=== PATIENT | female | born 1935 | race Caucasian/White ===

== ENCOUNTER 2020-09-08 13:52 | Outpatient (CLI) | payer MEDICARE, SELFPAY ==
--- NOTE | ~2020-09-08 | XR_ITS ---
EXAMINATION: XR wrist RT min 3V DATE: 09/08/2020 14:24 INDICATION: Right wrist fracture TECHNIQUE: Posteroanterior, oblique, and lateral views of the right wrist were obtained. COMPARISON: none FINDINGS: Casting material about the right wrist which obscures fine bone and soft tissue detail. Comminuted fr acture of the distal right radius. There is prominent dorsal angulation resulting in 40% dorsal tilt of the distal articular surface. No definitive intra-articular extension identified although given th e proximity this could not be absolutely excluded. No other fractures identified. 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 IMPRESSION: 1. Dorsal angulation of a comminuted fractures of the distal right radius resulting in 40 degree dors al tilt of the distal articular surface. Reviewed, dictated and finalized at location A. IMPRESSION: 1. Dorsal angulation of a comminuted fractures of the distal right radius resul ting in 40 degree dorsal tilt of the distal articular surface.
== END 2020-09-08 13:53 | disposition home or self-care (01) ==
LOC: CHSIMG 14:01
PROVIDERS: PCP Family Medicine; Visit Provider Family Medicine
DX: S62.101S Fracture of unspecified carpal bone, right wrist, sequela (principal)
CPT/HCPCS: 73110

== ENCOUNTER 2020-09-13 11:17 | Outpatient (CLI) | payer MEDICARE, SELFPAY | END 2020-09-13 11:18 | disposition home or self-care (01) | LOC: CHSCOVIDVC 11:17 | PROVIDERS: PCP Family Medicine | DX: Z23 Encounter for immunization (principal) | CPT/HCPCS: 0011A; 91301 ==

== ENCOUNTER 2020-09-26 08:42 | Outpatient (CLI) | payer OTHER, MEDICARE, SELFPAY ==
--- NOTE | ~2020-09-26 | XR_ITS ---
XR wrist RT min 3V DATE: 09/26/2020 09:01 INDICATION: Fracture follow-up TECHNIQUE: 3 views COMPARISON: 09/08/2020 right wrist FINDINGS: There is a fiberglass cast of the forearm and wrist. There is diffuse osteopenia. There is sclerosis at the transverse metaphyseal fracture of the distal radius with prominent dorsal inclination of the distal radial articular surface, without any change in position or alignment since 09/08/2020. Radiocarpal alignment is intact. IMPRESSION: Healing casted fracture of the distal radial metaphysis with persistent stable prominent dorsal inclination of the distal radial articular surface Reviewed, dictated and finalized at location A. IMPRESSION: Healing casted fracture of the distal radial metaphysis with persis tent stable prominent dorsal inclination of the distal radial articular surface
== END 2020-09-26 08:43 | disposition home or self-care (01) ==
LOC: CHSIMG 08:44
PROVIDERS: PCP Internal Medicine; Visit Provider Internal Medicine
DX: S62.101D Fracture of unspecified carpal bone, right wrist, subsequent encounter for fracture with routine healing (principal)
CPT/HCPCS: 73110

== ENCOUNTER 2020-10-04 07:30 | Outpatient (NON) | payer MEDICARE, SELFPAY ==
[2020-10-04 07:47] LABS: Basophils Absolute Auto 0.06 K/mm3 (0.00-0.10); Basophils Percent Auto 0.7 % (0.0-1.0); Eosinophils Absolute Auto 0.29 K/mm3 (0.02-0.50); Eosinophils Percent Auto 3.4 % (1.0-6.0); Hematocrit 41.2 % (35.0-42.0); Hemoglobin 13.6 g/dL (11.7-13.8); Immature Granulocyte Absolute 0.03 K/mm3 (0.00-0.00); Immature Granulocyte Percent A 0.4 % (0.0-0.0); Lymphocytes Absolute Auto 1.61 K/mm3 (1.10-4.50); Lymphocytes Percent Auto 19.1 % (18.0-42.0); Mean Corpuscular Hemoglobin 31.6 pg (27.0-31.0); Mean Corpuscular Volume 95.6 fL (78.0-102.0); Mean Platelet Volume 9.7 fl (9.2-11.8); Monocytes Absolute Auto 0.74 K/mm3 (0.10-0.90); Monocytes Percent Auto 8.8 % (2.0-11.0); Neutrophils Absolute Auto 5.7 K/mm3 (1.7-7.2); Neutrophils Percent Auto 67.6 % (50.0-70.0); Platelet Count Result 361 K/mm3 (150-420); Red Blood Count 4.31 M/mm3 (4.20-5.40); Red Cell Distribution Width 12.2 % (11.6-14.4); White Blood Count 8.4 K/mm3 (4.8-10.8)
[2020-10-04 08:13] LABS: Alanine Aminotransferase 21 U/L (14-59); Albumin Level 3.4 g/dL (3.4-5.0); Alkaline Phosphatase 265 U/L (46-116); Anion Gap 3 mmol/L (8-16); Aspartate Amino Transferase 19 U/L (15-37); Bilirubin,Total 0.7 mg/dL (0.00-1.00); Blood Urea Nitrogen 19 mg/dL (7-18); Carbon Dioxide 36 mmol/L (21-32); Chloride 102 mmol/L (98-108); Cholesterol 200 mg/dL (0-200); Estimated Glomerular Filt Rate > 60; Free T4 Free Thyroxine 0.86 ng/dL (0.76-1.46); Glucose 87 mg/dL (70-99); HDL Direct 101 mg/dL (40-60); LDL Cholesterol Calculated 82 mg/dL (<130); Osmolality Calculated 293 mOsm/kg (285-295); Potassium 4.2 mmol/L (3.5-5.1); Sodium 141 mmol/L (136-145); Thyroid Stimulating Hormone 2.02 uIU/mL (0.36-3.74); Total Protein 6.3 g/dL (6.4-8.2); Triglycerides 86 mg/dL (0-150)
[2020-10-09 12:36] LABS: Vitamin D 25 Hydroxy 51 ng/mL (30-100)
== END 2020-10-04 07:31 | disposition home or self-care (01) ==
LOC: CHSLAB 07:34
PROVIDERS: PCP Internal Medicine; Visit Provider Family Medicine
DX: D50.9 Iron deficiency anemia, unspecified (principal); G20 Parkinson's disease; J44.9 Chronic obstructive pulmonary disease, unspecified; E55.9 Vitamin D deficiency, unspecified; E78.5 Hyperlipidemia, unspecified; E03.9 Hypothyroidism, unspecified
CPT/HCPCS: 36415; 80053; 80061; 82306; 84439; 84443; 85025

== ENCOUNTER 2020-10-11 11:23 | Outpatient (CLI) | payer MEDICARE, SELFPAY | END 2020-10-11 11:24 | disposition home or self-care (01) | LOC: CHSCOVIDVC 11:23 | PROVIDERS: PCP Family Medicine | DX: Z23 Encounter for immunization (principal) | CPT/HCPCS: 0012A; 91301 ==

== ENCOUNTER 2020-10-26 13:52 | Outpatient (CLI) | payer MEDICARE, SELFPAY ==
--- NOTE | ~2020-10-26 | XR_ITS ---
EXAMINATION: XR wrist RT 2V DATE: 10/26/2020 14:30 INDICATION: Distal right radial fracture TECHNIQUE: Posteroanterior and lateral views of the right wrist were obtained. COMPARISON: 09/26/2020 FINDINGS: Again seen is a casting material about the right wrist and forearm which obscures fine bone and soft tissue detail. Fracture of the distal metaphyseal region of the right radius with increase in callus formation at the dorsal aspect of the fracture consistent with progressive healing. The fracture is h ealing with significant dorsal angulation resulting in 33 degree dorsal tilt of the distal articular surface. Generally mild polyarticular osteoarthritis throughout the right hand and wrist more severe moderate osteoarthritis at the second distal interphalangeal joint. IMPRESSION: 1. Distal right radial metaphyseal fracture which is healing with significant residual dorsal angulat ion resulting in 33 degree dorsal tilt of the distal articular surface. Reviewed, dictated and finalized at location A. IMPRESSION: 1. Distal right radial metaphyseal fracture which is healing with significant r esidual dorsal angulation resulting in 33 degree dorsal tilt of the distal eric cular surface.
== END 2020-10-26 13:53 | disposition home or self-care (01) ==
LOC: CHSIMG 14:00
PROVIDERS: PCP Internal Medicine; Visit Provider Internal Medicine
DX: S52.501S Unspecified fracture of the lower end of right radius, sequela (principal)
CPT/HCPCS: 73100

== ENCOUNTER 2020-10-27 12:34 | Outpatient (CLI) | payer MEDICARE, SELFPAY ==
--- NOTE | ~2020-10-27 | XR_ITS ---
XR forearm RT 2V DATE: 10/27/2020 13:07 INDICATION: Fracture; recent cast removal TECHNIQUE: 3 views COMPARISON: 10/26/2020 right wrist FINDINGS: Diffuse osteopenia. No fracture or dislocation at the right elbow joint. There is advanced healing at the distal radial metaphyseal fracture with prominent stable dorsal incl ination of the distal radial articular surface radiocarpal alignment is preserved. IMPRESSION: Advanced healing of distal radial metaphyseal fracture with stable prominent dorsal incli nation of distal radial articular surface Reviewed, dictated and finalized at location A. IMPRESSION: Advanced healing of distal radial metaphyseal fracture with stable prominent dorsal inclination of distal radial articular surface
== END 2020-10-27 12:35 | disposition home or self-care (01) ==
PROVIDERS: PCP Internal Medicine; Visit Provider Internal Medicine
DX: S52.501D Unspecified fracture of the lower end of right radius, subsequent encounter for closed fracture with routine healing (principal)
CPT/HCPCS: 73090

== ENCOUNTER 2021-07-21 06:53 | Outpatient (NON) | payer MEDICARE, SELFPAY ==
[2021-07-21 07:32] LABS: Basophils Absolute Auto 0.11 K/mm3 (0.00-0.10); Basophils Percent Auto 1.3 % (0.0-1.0); Hematocrit 42.4 % (35.0-42.0); Hemoglobin 14.1 g/dL (11.7-13.8); Immature Granulocyte Absolute 0.02 K/mm3 (0.00-0.00); Immature Granulocyte Percent A 0.2 % (0.0-0.0); Lymphocytes Absolute Auto 2.11 K/mm3 (1.10-4.50); Lymphocytes Percent Auto 25.2 % (18.0-42.0); Mean Corpuscular HGB Conc 33.3 g/dL (32.0-36.0); Mean Corpuscular Hemoglobin 32.5 pg (27.0-31.0); Mean Corpuscular Volume 97.7 fL (78.0-102.0); Monocytes Absolute Auto 0.67 K/mm3 (0.10-0.90); Neutrophils Percent Auto 59.3 % (50.0-70.0); Platelet Count Result 354 K/mm3 (150-420); Red Blood Count 4.34 M/mm3 (4.20-5.40); Red Cell Distribution Width 11.7 % (11.6-14.4); White Blood Count 8.4 K/mm3 (4.8-10.8)
[2021-07-21 07:56] LABS: Alanine Aminotransferase 26 U/L (14-59); Albumin Level 3.7 g/dL (3.4-5.0); Alkaline Phosphatase 90 U/L (46-116); Anion Gap 10 mmol/L (8-16); Aspartate Amino Transferase 22 U/L (15-37); Bilirubin,Total 0.8 mg/dL (0.00-1.00); Blood Urea Nitrogen 26 mg/dL (7-18); Calcium 9.1 mg/dL (8.5-10.1); Carbon Dioxide 29 mmol/L (21-32); Chloride 106 mmol/L (98-108); Cholesterol 186 mg/dL (0-200); Estimated Glomerular Filt Rate > 60; Glucose 113 mg/dL (70-99); HDL Direct 107 mg/dL (40-60); LDL Cholesterol Calculated 62 mg/dL (<130); Osmolality Calculated 305 mOsm/kg (285-295); Potassium 4.4 mmol/L (3.5-5.1); Sodium 145 mmol/L (136-145); Total Protein 6.7 g/dL (6.4-8.2); Triglycerides 86 mg/dL (0-150)
[2021-07-23 15:47] LABS: Vitamin D 25 Hydroxy 48 ng/mL (30-100)
== END 2021-07-21 06:54 | disposition home or self-care (01) ==
PROVIDERS: Visit Provider Family Medicine
DX: E55.9 Vitamin D deficiency, unspecified (principal); E78.1 Pure hyperglyceridemia; E46 Unspecified protein-calorie malnutrition; D50.9 Iron deficiency anemia, unspecified
CPT/HCPCS: 36415; 80053; 80061; 82306; 85025

== ENCOUNTER 2022-01-21 06:37 | Outpatient (NON) | payer MEDICARE, SELFPAY ==
[2022-01-21 07:19] LABS: Basophils Percent Auto 1.1 % (0.0-1.0); Eosinophils Absolute Auto 0.48 K/mm3 (0.02-0.50); Eosinophils Percent Auto 5.3 % (1.0-6.0); Hematocrit 44.7 % (35.0-42.0); Hemoglobin 14.9 g/dL (11.7-13.8); Immature Granulocyte Absolute 0.03 K/mm3 (0.00-0.00); Immature Granulocyte Percent A 0.3 % (0.0-0.0); Lymphocytes Absolute Auto 2.15 K/mm3 (1.10-4.50); Lymphocytes Percent Auto 23.5 % (18.0-42.0); Mean Corpuscular HGB Conc 33.3 g/dL (32.0-36.0); Mean Corpuscular Hemoglobin 32.6 pg (27.0-31.0); Mean Corpuscular Volume 97.8 fL (78.0-102.0); Mean Platelet Volume 9.6 fl (9.2-11.8); Monocytes Absolute Auto 0.83 K/mm3 (0.10-0.90); Monocytes Percent Auto 9.1 % (2.0-11.0); Neutrophils Absolute Auto 5.6 K/mm3 (1.7-7.2); Neutrophils Percent Auto 60.7 % (50.0-70.0); Platelet Count Result 326 K/mm3 (150-420); Red Blood Count 4.57 M/mm3 (4.20-5.40); Red Cell Distribution Width 11.5 % (11.6-14.4); White Blood Count 9.1 K/mm3 (4.8-10.8)
[2022-01-21 07:44] LABS: Alanine Aminotransferase 18 U/L (14-59); Albumin Level 3.7 g/dL (3.4-5.0); Alkaline Phosphatase 98 U/L (46-116); Anion Gap 6 mmol/L (8-16); Aspartate Amino Transferase 14 U/L (15-37); Bilirubin,Total 0.9 mg/dL (0.00-1.00); Blood Urea Nitrogen 19 mg/dL (7-18); Calcium 9.3 mg/dL (8.5-10.1); Carbon Dioxide 33 mmol/L (21-32); Chloride 101 mmol/L (98-108); Cholesterol 200 mg/dL (0-200); Estimated Glomerular Filt Rate > 60; Glucose 101 mg/dL (70-99); HDL Direct 103 mg/dL (40-60); LDL Cholesterol Calculated 66 mg/dL (<130); Osmolality Calculated 292 mOsm/kg (285-295); Sodium 140 mmol/L (136-145); Total Protein 7.4 g/dL (6.4-8.2); Triglycerides 156 mg/dL (0-150)
== END 2022-01-21 06:38 | disposition home or self-care (01) ==
LOC: CHSLAB 06:39
PROVIDERS: Visit Provider Family Medicine
DX: D50.9 Iron deficiency anemia, unspecified (principal); G20 Parkinson's disease; J44.9 Chronic obstructive pulmonary disease, unspecified; E78.1 Pure hyperglyceridemia
CPT/HCPCS: 36415; 80053; 80061; 85025

== ENCOUNTER 2022-05-13 06:49 | Outpatient (NON) | payer MEDICARE, SELFPAY ==
[2022-05-13 07:13] LABS: Basophils Absolute Auto 0.13 K/mm3 (0.00-0.10); Basophils Percent Auto 1.3 % (0.0-1.0); Eosinophils Absolute Auto 0.39 K/mm3 (0.02-0.50); Eosinophils Percent Auto 3.9 % (1.0-6.0); Hemoglobin 13.5 g/dL (11.7-13.8); Immature Granulocyte Absolute 0.07 K/mm3 (0.00-0.00); Immature Granulocyte Percent A 0.7 % (0.0-0.0); Immature Platelet Fraction Pct 1.3 % (1.0-7.0); Lymphocytes Absolute Auto 2.27 K/mm3 (1.10-4.50); Lymphocytes Percent Auto 22.5 % (18.0-42.0); Mean Corpuscular HGB Conc 32.1 g/dL (32.0-36.0); Mean Corpuscular Hemoglobin 31.1 pg (27.0-31.0); Mean Corpuscular Volume 96.8 fL (78.0-102.0); Mean Platelet Volume 9.6 fl (9.2-11.8); Monocytes Percent Auto 6.9 % (2.0-11.0); Neutrophils Absolute Auto 6.5 K/mm3 (1.7-7.2); Neutrophils Percent Auto 64.7 % (50.0-70.0); Platelet Count Result 595 K/mm3 (150-420); Red Blood Count 4.34 M/mm3 (4.20-5.40); Red Cell Distribution Width 11.6 % (11.6-14.4); White Blood Count 10.1 K/mm3 (4.8-10.8)
[2022-05-13 07:24] LABS: Add Urine Microscopic? YES; Appearance Urine Slightly Cloudy (Clear); Bilirubin Urine Negative (Negative); Blood Urine Trace-Intact (Negative); Color Urine Light Yellow (Yellow); Glucose Urine UA Negative (Negative); Ketones Urine Negative (Negative); Leukocyte Esterase Ur Trace LEU/UL (Negative); Nitrate Urine Negative (Negative); Protein Urine Negative (Negative); Specific Grav Ur 1.015 (1.010-1.020); Urobilinogen Urine 0.2 mg/dL (0.2-1.0)
[2022-05-13 07:29] LABS: RBC Urine 0-2 /hpf (0-2)
[2022-05-13 07:30] LABS: Bacteria Urine 3+ /hpf; Squamous Epithelial Cell Urine Rare /hpf (Few)
[2022-05-13 07:31] LABS: Alanine Aminotransferase 18 U/L (14-59); Alkaline Phosphatase 108 U/L (46-116); Anion Gap 7 mmol/L (8-16); Aspartate Amino Transferase 12 U/L (15-37); Bilirubin,Total 0.4 mg/dL (0.00-1.00); Blood Urea Nitrogen 21 mg/dL (7-18); Calcium 9.2 mg/dL (8.5-10.1); Carbon Dioxide 32 mmol/L (21-32); Chloride 101 mmol/L (98-108); Estimated Glomerular Filt Rate > 60; Glucose 107 mg/dL (70-99); Osmolality Calculated 293 mOsm/kg (285-295); Sodium 140 mmol/L (136-145)
[2022-05-13 08:19] LABS: Erythrocyte Sedimentation Rate 46 mm/hr (0-20)
== END 2022-05-13 06:50 | disposition home or self-care (01) ==
LOC: CHSLAB 06:51
PROVIDERS: Visit Provider Family Medicine
DX: G20 Parkinson's disease (principal); G62.9 Polyneuropathy, unspecified
CPT/HCPCS: 36415; 80053; 81001; 85025; 85055; 85652

== ENCOUNTER 2022-06-13 19:54 | Emergency (ER) | payer MEDICARE, SELFPAY ==
--- NOTE | ~2022-06-13 | CT_ITS ---
EXAMINATION: CT cervical spine wo con DATE: 06/13/2022 20:15 INDICATION: Head injury. Fall. TECHNIQUE: Computed tomography (CT) of the cervical spine was performed without intravenous contrast. Automated exposure control and iterative reconstruction technique were employed. The dose-length pro duct was 176.69 mGy-cm. COMPARISON: None FINDINGS: There is mild scarring at the lung apices. Motion artifact is noted. There is kyphosis of c ervical spine. Vertebral body heights are normal. There is moderate to severely decreased disc height from C4-C5 through C6-C7 with endplate remodeling. The following disc levels are specifically discus sed: C2-C3: There is no uncovertebral joint osteoarthritis. There is mild bilateral facet joint osteoarthr itis. There is no neural foraminal stenosis. There is no central canal stenosis. C3-C4: There is mild bilateral uncovertebral joint osteoarthritis. There is no facet joint osteoarthr itis. There is no neural foraminal stenosis. There is no central canal stenosis. C4-C5: There is severe bilateral uncovertebral joint osteoarthritis. There is mild right and moderate left facet joint osteoarthritis. There is mild bilateral neural foraminal stenosis. There is mild ce ntral canal stenosis. C5-C6: There is severe bilateral uncovertebral joint osteoarthritis. There is mild bilateral facet rory int osteoarthritis. There is moderate right and mild left neural foraminal stenosis. There is mild ce ntral canal stenosis. C6-C7: There is severe right and moderate left uncovertebral joint osteoarthritis. There is moderate bilateral facet joint osteoarthritis. There is mild bilateral neural foraminal stenosis. There is mil d central canal stenosis. C7-T1: There is no uncovertebral joint osteoarthritis. There is severe right and moderate left facet joint osteoarthritis. There is mild right neural foraminal stenosis. There is no central canal stenos is. IMPRESSION: 1. No fracture. 2. Severe cervical spondylosis. Reviewed, dictated and finalized at location A. QUILTER
--- NOTE | ~2022-06-13 | CT_ITS ---
EXAMINATION: CT brain wo con DATE: 06/13/2022 20:15 INDICATION: Fall. TECHNIQUE: Computed tomography (CT) of the head was performed without intravenous contrast. The mA wa s adjusted according to patient size. Iterative reconstruction technique was employed. The dose-lengt h product was 681.00 mGy-cm. COMPARISON: None FINDINGS: There is diffuse brain volume loss. There are scattered areas of low attenuation in the cer ebral white matter. There is no intracranial hemorrhage, acute infarction, or abnormal intracranial m ass lesion. The ventricles are normal in size. There is a right lateral scalp hematoma. There is mild mucosal thickening in the paranasal sinuses. Orbits are normal. The mastoid air cells are normal. IMPRESSION: 1. Extensive nonspecific cerebral white matter disease, which likely represents chronic small vessel ischemic disease. Reviewed, dictated and finalized at location A. ON PAPER INTERLEAFER
--- NOTE | 2022-06-13 19:55 | ECG_ITS ---
Measurements Intervals [place] Rate: 87 P: 88 VT: 164 QRS: 98 QRSD: 81 T: 60 QT: 346 QTc: 417 Interpretive Statements SINUS RHYTHM DELAYED PRECORDIAL R/S TRANSITION BASELINE ARTIFACT- I, II, III, AVR, AVL, AVF, V1-V6 BORDERLINE ECG NO PREVIOUS ECG AVAILABLE FOR COMPARISON Electronically Signed On 06-14-2022 6:37:49 ADVERTISING MATERIAL DISTRIBUTOR by Ozzy Wall D.O.
--- NOTE | 2022-06-13 19:56 | ED.GENADULT ---
HPI - General Adult General Chief complaint: Head Injury Stated complaint: amb Time Seen by Provider: 06/13/22 19:54 History of Present Illness HPI narrative: Natty is an 87F with a PMH of dementia, parkinson's, polyneuropathy, MALLY, osteoporosis, and neoplasm of upper airway that was brought from [facility] after she fell forward out of her wheelchair and hit her head. She is A&Ox1 at baseline. She is DNR/DNI and comfort measures only. Related Data Home Medications Medication Instructions Recorded Confirmed acetaminophen 325 mg tablet 650 mg PO Q6-8H PRN Pain 06/13/22 06/21/22 albuterol sulfate 90 mcg/actuation 2 puff inhalation Q4-6H PRN 06/13/22 06/21/22 aerosol inhaler Shortness Of Breath aspirin 81 mg tablet,delayed 81 mg PO DAILY 06/13/22 06/21/22 release cholecalciferol (vitamin D3) 125 125 mcg PO DAILY 06/13/22 06/21/22 mcg (5,000 unit) tablet duloxetine 60 mg capsule,delayed 60 mg PO DAILY 06/13/22 06/21/22 release fentanyl 25 mcg/hr transdermal 1 patch transdermal Q3D 06/13/22 06/21/22 patch hydrocodone 5 mg-acetaminophen 325 1 tablet PO Q6-8H PRN Pain 06/13/22 06/21/22 mg tablet lorazepam 0.5 mg tablet 0.5 mg PO BID 06/13/22 06/21/22 multivitamin,tx-minerals 1 tablet PO DAILY 06/13/22 06/21/22 simvastatin 20 mg tablet 20 mg PO DAILY 06/13/22 06/21/22 trihexyphenidyl 2 mg tablet 2 mg PO TID 06/13/22 06/21/22 Allergies Allergy/AdvReac Type Severity Reaction Status Date / Time chocolate flavor Allergy Unknown Verified 06/21/22 10:14 Review of Systems Review of Systems: ROS unobtainable: Yes unobtainable due to mental status PMFSH Social History Social History Smoking status: Never smoker Alcohol intake: never Substance use: never Substance use type: does not use Spiritual care concerns: No Exam Const: General: no acute distress and confusion Nutritional Appearance: well nourished HENMT: Ears: external ears normal Face/Nose/Sinus: Normal external nose present Other: Contusion on forehead Eyes: Conjunctivae: conjunctivae normal Pupils: Equal, round and reactive pupils present EOM: EOMs intact bilaterally Neck: Neck: normal visual inspection Chest: Chest palpation & inspection: normal inspection of the chest Resp: Effort & Inspection: normal respiratory effort Auscultation: clear to auscultation bilaterally Cardio: Rate: regular rate Rhythm: regular rhythm GI: Inspection: non-distended GI Palp: Yes Soft to palpation, No Tenderness to palpation present (GI) and No Guarding due to palpation present (GI) Skin: General skin exam: normal color Neuro: Other: A&Ox1 Extrem: General: normal to inspection Psych: Other: oriented to self only Course Course Emergency Course: Ordered CT, labs and eKG EKG showed NSR with a rate o 87, normal axis and no ST elevation/depression EXAMINATION: CT cervical spine wo con DATE: 06/13/2022 20:15 INDICATION: Head injury. Fall. TECHNIQUE: Computed tomography (CT) of the cervical spine was performed without intravenous contrast. Automated exposure control and iterative reconstruction technique were employed. The dose-length product was 176.69 mGy-cm. COMPARISON: None FINDINGS: There is mild scarring at the lung apices. Motion artifact is noted. There is kyphosis of cervical spine. Vertebral body heights are normal. There is moderate to severely decreased disc height from C4-C5 through C6-C7 with endplate remodeling. The following disc levels are specifically discussed: C2-C3: There is no uncovertebral joint osteoarthritis. There is mild bilateral facet joint osteoarthritis. There is no neural foraminal stenosis. There is no central canal stenosis. C3-C4: There is mild bilateral uncovertebral joint osteoarthritis. There is no facet joint osteoarthritis. There is no neural foraminal stenosis. There is no central canal stenosis. C4-C5: There is severe bilateral uncovertebral joint os
[2022-06-13 20:08] VITALS: BP 150/82; PULSE 84; RESP 20; TEMP 36.2; O2SAT 95
[2022-06-13 20:27] VITALS: PULSE 85; RESP 18; O2SAT 98
[2022-06-13 20:28] VITALS: PULSE 87; RESP 18; O2SAT 98
[2022-06-13] MEDS: IPRATROPIUM 0.5 MG/ALBUTEROL SULFATE 2.5 MG AMPUL.NEB 3 ML INHALATION (20:29)
--- NOTE | 2022-06-13 20:38 | PC.NURSE ---
Pt is unable to comprehend, she will try to pull at this RN's hair and arms when trying to help move her. Noted dry mucous membranes, pt answers yes to all questions. Pt given ice chips and tolerated well.
[2022-06-13] MEDS: SODIUM CHLORIDE 0.9% IV 1,000 ML 500 ML IV CONT (20:45)
[2022-06-13] MEDS: MORPHINE SULFATE (*CRX) 4 MG/ML INJ IV PUSH ×2 (20:45→22:42)
[2022-06-13 21:05] VITALS: BP 131/59; PULSE 80; RESP 20; O2SAT 95
[2022-06-13 21:09] LABS: Basophils Absolute Auto 0.07 K/mm3 (0.00-0.10); Basophils Percent Auto 0.8 % (0.0-1.0); Eosinophils Absolute Auto 0.33 K/mm3 (0.02-0.50); Eosinophils Percent Auto 3.7 % (1.0-6.0); Hematocrit 40.3 % (35.0-42.0); Hemoglobin 12.8 g/dL (11.7-13.8); Immature Granulocyte Absolute 0.03 K/mm3 (0.00-0.00); Immature Granulocyte Percent A 0.3 % (0.0-0.0); Lymphocytes Absolute Auto 1.62 K/mm3 (1.10-4.50); Mean Corpuscular HGB Conc 31.8 g/dL (32.0-36.0); Mean Corpuscular Hemoglobin 30.7 pg (27.0-31.0); Mean Corpuscular Volume 96.6 fL (78.0-102.0); Mean Platelet Volume 9.6 fl (9.2-11.8); Monocytes Absolute Auto 0.73 K/mm3 (0.10-0.90); Monocytes Percent Auto 8.1 % (2.0-11.0); Neutrophils Absolute Auto 6.2 K/mm3 (1.7-7.2); Neutrophils Percent Auto 69.1 % (50.0-70.0); Platelet Count Result 297 K/mm3 (150-420); Red Blood Count 4.17 M/mm3 (4.20-5.40); Red Cell Distribution Width 12.1 % (11.6-14.4)
[2022-06-13 21:21] LABS: Prothrombin Time 11.2 Seconds (9.50-12.10)
[2022-06-13 21:26] LABS: Alanine Aminotransferase 19 U/L (14-59); Albumin Level 3.3 g/dL (3.4-5.0); Alkaline Phosphatase 87 U/L (46-116); Anion Gap 5 mmol/L (8-16); Aspartate Amino Transferase 12 U/L (15-37); Bilirubin,Total 0.7 mg/dL (0.00-1.00); Blood Urea Nitrogen 23 mg/dL (7-18); Calcium 8.8 mg/dL (8.5-10.1); Carbon Dioxide 34 mmol/L (21-32); Chloride 105 mmol/L (98-108); Estimated CRCL calculation 40 ml/min; Estimated Glomerular Filt Rate > 60; Glucose 106 mg/dL (70-99); Osmolality Calculated 301 mOsm/kg (285-295); Potassium 4.9 mmol/L (3.5-5.1); Sodium 144 mmol/L (136-145); Total Protein 6.7 g/dL (6.4-8.2)
[2022-06-13 22:25] VITALS: BP 134/87; PULSE 84; RESP 20; O2SAT 95
--- NOTE | 2022-06-13 22:26 | PC.NURSE ---
Pt rolling around in bed, unable to reorient, moaning, pulling at covers, ERP Dr Wang attempted to call POA and contacts, unable to reach. Pt trying to pull at nurse arms when turning and attempting to reposition.
--- NOTE | 2022-06-13 22:44 | PC.NURSE ---
Call back to [facility] and report given to Mellissa about pt. d/c back to [place]. Pts VSS, 2nd dose of Morphine given as per order for pt pain. Pt changed from wet urine diaper and new diaper placed. Pt unable to follow commands as pulls at staff and moans. [facility] has no crew for transport back to [facility]. Call then placed to [facility] for S transport back. Pt is unable to tolerate w/c and is bed confined. Paperwork for transport back completed.
[2022-06-13 22:54] VITALS: BP 118/74; PULSE 80; RESP 20; TEMP 36.4; O2SAT 97
== END 2022-06-13 23:10 ==
PROVIDERS: Emergency Provider Family Medicine; PCP Internal Medicine
DX: S00.93XA Contusion of unspecified part of head, initial encounter (principal); G20 Parkinson's disease; F02.80 Dementia in other diseases classified elsewhere, unspecified severity, without behavioral disturbance, psychotic disturbance, mood disturbance, and anxiety; Z79.891 Long term (current) use of opiate analgesic; Z79.82 Long term (current) use of aspirin; W05.0XXA Fall from non-moving wheelchair, initial encounter
CPT/HCPCS: 36415; 70450; 72125; 80053; 84484; 85025; 85610; 93005; 94640; 96361; 96374; 96376; 99284; J2270; J7030

== ENCOUNTER 2022-06-21 09:44 | Inpatient (IN) | payer MEDICARE, SELFPAY ==
[2022-06-21] VITALS (46 sets, daily range): BP systolic 137–239; BP diastolic 57–116; PULSE 0–132; RESP 16–40; TEMP 36.1–36.9; O2SAT 84–100; BMI 18.9
--- NOTE | ~2022-06-21 | XR_ITS ---
Portable chest x-ray Comparison: None Clinical History: Respiratory distress Findings: Suspected COPD. Possible right basilar nipple shadow versus pulmonary nodule. Cardiomedia stinal silhouette is stable. Bones and soft tissues are unremarkable. Impression: Suspected right basilar nipple shadow versus possibly pulmonary nodule. Consider repeat exam with nip ple markers. Probable COPD. Reviewed, dictated and finalized at [facility]. ICAL ORDERLY Impression: Suspected right basilar nipple shadow versus possibly pulmonary nodule. Conside r repeat exam with nipple markers. Probable COPD.
--- NOTE | ~2022-06-21 | XR_ITS ---
Portable chest x-ray Comparison: 06/21/2022 Clinical History: Pneumonia Findings: Lungs are clear, without focal consolidation or pleural effusion. Cardiomediastinal silho uette is stable. Bones and soft tissues are unremarkable. Impression: Clear lungs. Reviewed, dictated and finalized at location . 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
[2022-06-21] MEDS: IPRATROPIUM 0.5 MG/ALBUTEROL SULFATE 2.5 MG AMPUL.NEB 3 ML INHALATION ×5 (10:10→23:40)
--- NOTE | 2022-06-21 10:13 | ECG_ITS ---
Measurements Intervals [place] Rate: 101 P: 79 WI: 155 QRS: 88 QRSD: 85 T: 42 QT: 342 QTc: 444 Interpretive Statements SINUS TACHYCARDIA BASELINE ARTIFACT CANNOT RULE OUT ANTEROSEPTAL MYOCARDIAL INFARCTION , OF INDETERMINATE AGE ABNORMAL ECG COMPARED TO ECG 06/13/2022 20:16:18 SINUS TACHYCARDIA NOW PRESENT MYOCARDIAL INFARCT FINDING NOW PRESENT Electronically Signed On 06-21-2022 16:11:01 ENDOSCOPY REGISTERED NURSE by Manuel Avila M.D.
--- NOTE | 2022-06-21 10:18 | ED.GENADULT ---
HPI - General Adult General Chief complaint: Shortness of Breath/Dyspnea Stated complaint: Trouble Breathing Time Seen by Provider: 06/21/22 09:52 History of Present Illness HPI narrative: the patient is an 87-year-old woman who was a resident of the shelter, code status DNR comfort care only. She has dementia, and aspiration precautions due to oropharyngeal dysphagia with a diet of honey thickened liquids. Other comorbidities include hyperlipidemia, anxiety disorder, osteoporosis, COPD but not normally on oxygen, and Parkinson's disease. Shortly after having breakfast today, she was noted to have shortness of breath and crackles. Oxygen saturations were 60% on room air. At 2 L, saturations were 83%. This raised the question of aspiration. She is brought here, tachypnea, respiratory distress. Initial respiratory rate 48 in triage. Blood pressure elevated to 39/105, pulse 130-140. Temperature 98?. No other history is available or obtainable given her dementia. No attendants from the shelter are with the patient. No family members are with her at present. Related Data Home Medications Medication Instructions Recorded Confirmed acetaminophen 325 mg tablet 650 mg PO Q6-8H PRN Pain 06/13/22 06/21/22 albuterol sulfate 90 mcg/actuation 2 puff inhalation Q4-6H PRN 06/13/22 06/21/22 aerosol inhaler Shortness Of Breath aspirin 81 mg tablet,delayed 81 mg PO DAILY 06/13/22 06/21/22 release cholecalciferol (vitamin D3) 125 125 mcg PO DAILY 06/13/22 06/21/22 mcg (5,000 unit) tablet duloxetine 60 mg capsule,delayed 60 mg PO DAILY 06/13/22 06/21/22 release fentanyl 25 mcg/hr transdermal 1 patch transdermal Q3D 06/13/22 06/21/22 patch hydrocodone 5 mg-acetaminophen 325 1 tablet PO Q6-8H PRN Pain 06/13/22 06/21/22 mg tablet lorazepam 0.5 mg tablet 0.5 mg PO BID 06/13/22 06/21/22 multivitamin,tx-minerals 1 tablet PO DAILY 06/13/22 06/21/22 simvastatin 20 mg tablet 20 mg PO DAILY 06/13/22 06/21/22 trihexyphenidyl 2 mg tablet 2 mg PO TID 06/13/22 06/21/22 Allergies Allergy/AdvReac Type Severity Reaction Status Date / Time chocolate flavor Allergy Unknown Verified 06/21/22 10:14 Review of Systems Review of Systems: ROS unobtainable: Yes unobtainable due to medical condition (respiratory distress) and unobtainable due to mental status (dementia, normally A&O x 1) [facility], [facility] Social History Social History Smoking status: Never smoker Alcohol intake: never Substance use: never Substance use type: does not use Spiritual care concerns: No Exam Const: General: confusion, diaphoretic and ill appearing Nutritional Appearance: thin Orientation/consciousness: oriented to person and confusion Limitations: altered mental status and behavioral limitations HENMT: Head: normal to inspection and no contusions Face/Nose/Sinus: Normal external nose present Mouth: Yes Normal oral and palatal mucosa present, Yes moist mucous membranes and No dry mucous membranes Eyes: Conjunctivae: conjunctivae normal Neck: Neck: normal visual inspection, no lymphadenopathy and no meningeal signs Chest: Chest palpation & inspection: normal inspection of the chest, abnormal inspection of the chest and no tenderness Resp: Effort & Inspection: abnormal respiratory pattern, audible wheezes, labored, respiratory distress, retractions, no stridor and symmetric chest movement Auscultation: crackles, rhonchi, wheezes, diminished lung sounds and bronchial breath sounds Percussion: percussion normal Cardio: Rate: tachycardic Rhythm: regular rhythm Heart sounds: no murmurs GI: GI Palp: Yes Soft to palpation, No Tenderness to palpation present (GI) and No Guarding due to palpation present (GI) Back/Spine/Pelvis: Back: no CVA tenderness Skin: General skin exam: normal color, no jaundice and no pallor Neuro: General: moves all extremities, no meningeal signs, no focal motor deficits
[2022-06-21] MEDS: LORazepam INJ (*CRX) 2 MG/ML VIAL 0.5 MG IV PUSH ×2 (10:20→12:40)
[2022-06-21] MEDS: methylPREDNISolone SOD SUCC 125 MG VIAL IV PUSH (10:28)
[2022-06-21] MEDS: SODIUM CHLORIDE 0.9% IV 1,000 ML 999 ML IV CONT (10:29)
[2022-06-21 10:42] LABS: Base Excess ABG 0.6 mmol/L (0-2); Oxygen Content ABG 18.6 %vol (16.0-22.0); Oxygen Saturation ABG 90.2 % (95-97); Oxyhemoglobin 89.3 % (94-100); PO2 ABG 62.1 mmHg (75-85); Total Hemoglobin 14.8 g/dL (12.0-18.0); pH ABG 7.35 (7.35-7.45)
[2022-06-21 10:43] LABS: Device NASAL CANNULA; Modified Allen's Test Pass; Site Drawn LEFT RADIAL
[2022-06-21 10:45] LABS: Basophils Absolute Auto 0.07 K/mm3 (0.00-0.10); Basophils Percent Auto 0.6 % (0.0-1.0); Eosinophils Absolute Auto 0.15 K/mm3 (0.02-0.50); Eosinophils Percent Auto 1.4 % (1.0-6.0); Hematocrit 45.4 % (35.0-42.0); Hemoglobin 14.5 g/dL (11.7-13.8); Immature Granulocyte Absolute 0.05 K/mm3 (0.00-0.00); Immature Granulocyte Percent A 0.5 % (0.0-0.0); Lymphocytes Absolute Auto 0.94 K/mm3 (1.10-4.50); Lymphocytes Percent Auto 8.6 % (18.0-42.0); Mean Corpuscular HGB Conc 31.9 g/dL (32.0-36.0); Mean Corpuscular Hemoglobin 30.9 pg (27.0-31.0); Mean Corpuscular Volume 96.6 fL (78.0-102.0); Monocytes Absolute Auto 0.56 K/mm3 (0.10-0.90); Monocytes Percent Auto 5.1 % (2.0-11.0); Neutrophils Absolute Auto 9.1 K/mm3 (1.7-7.2); Neutrophils Percent Auto 83.8 % (50.0-70.0); Platelet Count Result 371 K/mm3 (150-420); White Blood Count 10.9 K/mm3 (4.8-10.8)
[2022-06-21 11:02] LABS: Lactic Acid Reflex 2.3 mmol/L (0.4-2.0)
[2022-06-21 11:11] LABS: Alanine Aminotransferase 28 U/L (14-59); Albumin Level 3.6 g/dL (3.4-5.0); Alkaline Phosphatase 108 U/L (46-116); Anion Gap 6 mmol/L (8-16); Aspartate Amino Transferase 12 U/L (15-37); Bilirubin,Total 1.2 mg/dL (0.00-1.00); Blood Urea Nitrogen 26 mg/dL (7-18); CRP < 0.5 mg/dL (0.0-0.9); Carbon Dioxide 33 mmol/L (21-32); Chloride 102 mmol/L (98-108); Estimated CRCL calculation 33 ml/min; Estimated Glomerular Filt Rate > 60; Glucose 253 mg/dL (70-99); Magnesium 1.9 mg/dL (1.8-2.4); NT Pro B Type Natriuretic Pept 214 pg/mL (0-450); Osmolality Calculated 305 mOsm/kg (285-295); Potassium 3.9 mmol/L (3.5-5.1); Sodium 141 mmol/L (136-145); Total Protein 7.7 g/dL (6.4-8.2); Troponin I 14.3 ng/L (0.00-60.4)
[2022-06-21] MEDS: MAGNESIUM SULF 2 GM/WATER 50ML 2 GM/50 ML BAG IVPB (11:11)
[2022-06-21 11:20] LABS: Influenza A QL RT-PCR Negative (Negative); Influenza B QL RT-PCR Negative (Negative); SARS-CoV-2 RNA PCR Negative (Negative)
[2022-06-21 11:23] LABS: RSV RNA, RT-PCR Negative (Negative)
[2022-06-21 11:51] LABS: Add Urine Microscopic? YES; Appearance Urine Clear (Clear); Bacteria Urine 4+ /hpf; Bilirubin Urine Negative (Negative); Blood Urine 2+ (Negative); Color Urine Light Yellow (Yellow); Glucose Urine UA Trace (Negative); Ketones Urine Negative (Negative); Leukocyte Esterase Ur Negative LEU/UL (Negative); Nitrate Urine Positive (Negative); Protein Urine Trace (Negative); Renal Epithelial Cells Urine Few /hpf; Specific Grav Ur 1.025 (1.010-1.020); Squamous Epithelial Cell Urine Few /hpf (Few); Urobilinogen Urine 0.2 mg/dL (0.2-1.0); WBC Urine None seen /hpf (0-3)
[2022-06-21 11:52] LABS: Erythrocyte Sedimentation Rate 20 mm/hr (0-30)
[2022-06-21 13:42] LABS: Reflex Lactic Acid Yes or No Add Lactic
[2022-06-21 14:18] LABS: Lactic Acid 3.5 mmol/L (0.4-2.0)
--- NOTE | 2022-06-21 14:41 | PHAR ---
SPOKE W/M[facility]PHY AT [facility]. FENTANYL PATCH IS DUE EDEL 06/21/22 20:00. TLS
--- NOTE | 2022-06-21 15:48 | ADMGEN ---
This patient, Delfina Qureshi, was admitted to 2nd Floor Room 206-1 for copd exacerbation. Patient/family oriented to hospital policies and general routines including ID bracelet, bed and alarms, visiting hours, pain management, procedures, bathroom and other care routines, personal items, smoking policy, room service/diet, and visiting hours. Information on how to activate the Rapid Response Team has been discussed. Patient/Family are encouraged to report perceived risks to care and to ask questions if they do not understand what they are told or what they should do.
[2022-06-21] MEDS: fentaNYL (*CRX) 25 MCG PATCH TRANSDERM (19:37)
[2022-06-21] MEDS: methylPREDNISolone SOD SUCC 40 MG VIAL IV PUSH (20:37)
[2022-06-21] MEDS: LORazepam INJ (*CRX) 2 MG/ML VIAL 1 MG IV PUSH (22:05)
--- NOTE | 2022-06-21 22:13 | PC.NURSE ---
Patient has bouts of moaning and pulling her arms and legs into her core. After nurse has gone into her room to comfort her, she has typically relaxed, with her muscles relaxing, and moaning stopped. This occurred three times. After the last time, she was no longer comforted just with the nurse's presence, and she was given Ativan, 1 mg IV push, per PRN orders. Patient has calmed down, and was able to remain calm for some time.
[2022-06-22] VITALS (16 sets, daily range): BP systolic 113–150; BP diastolic 60–86; PULSE 70–106; RESP 12–20; TEMP 35.9–36.4; O2SAT 91–100
[2022-06-22] MEDS: IPRATROPIUM 0.5 MG/ALBUTEROL SULFATE 2.5 MG AMPUL.NEB 3 ML INHALATION ×4 (05:05→23:25)
[2022-06-22] MEDS: methylPREDNISolone SOD SUCC 40 MG VIAL IV PUSH ×3 (05:18→20:11)
[2022-06-22 05:23] LABS: Basophils Absolute Auto 0.01 K/mm3 (0.00-0.10); Basophils Percent Auto 0.1 % (0.0-1.0); Hematocrit 36.8 % (35.0-42.0); Immature Granulocyte Absolute 0.06 K/mm3 (0.00-0.00); Immature Granulocyte Percent A 0.4 % (0.0-0.0); Lymphocytes Absolute Auto 0.68 K/mm3 (1.10-4.50); Lymphocytes Percent Auto 4.5 % (18.0-42.0); Mean Corpuscular HGB Conc 32.6 g/dL (32.0-36.0); Mean Corpuscular Hemoglobin 31.3 pg (27.0-31.0); Mean Corpuscular Volume 95.8 fL (78.0-102.0); Mean Platelet Volume 9.7 fl (9.2-11.8); Monocytes Absolute Auto 0.42 K/mm3 (0.10-0.90); Monocytes Percent Auto 2.8 % (2.0-11.0); Neutrophils Absolute Auto 14.1 K/mm3 (1.7-7.2); Neutrophils Percent Auto 92.2 % (50.0-70.0); Platelet Count Result 279 K/mm3 (150-420); Red Blood Count 3.84 M/mm3 (4.20-5.40); Red Cell Distribution Width 12.3 % (11.6-14.4); White Blood Count 15.2 K/mm3 (4.8-10.8)
[2022-06-22 05:33] LABS: Anion Gap 4 mmol/L (8-16); Blood Urea Nitrogen 24 mg/dL (7-18); Calcium 8.5 mg/dL (8.5-10.1); Carbon Dioxide 31 mmol/L (21-32); Chloride 109 mmol/L (98-108); Estimated CRCL calculation 45 ml/min; Estimated Glomerular Filt Rate > 60; Glucose 156 mg/dL (70-99); Osmolality Calculated 305 mOsm/kg (285-295); Potassium 4.5 mmol/L (3.5-5.1); Sodium 144 mmol/L (136-145)
--- NOTE | 2022-06-22 08:12 | PM.IMHP ---
H&P: HPI History of Present Illness Date/Time: 06/22/22 08:12 Chief Complaint: Hypoxia, urinary Tract infection Narrative: This is a 87 year old female that was brought in from the long-term with acute hypoxia, UTI, Hypertensice, Tachycardic. Patient PMH is from previous chart ?of dementia, parkinson's, polyneuropathy, MALLY, osteoporosis, and neoplasm of upper airway. Patient was found to have saturation in the 60% on arrival and she is a comfort measure so BIPAP was not a option. Patient was started on IVF with IV antibiotics and given IV magnesium with blood pressure medication. At this time Patient patient is not responsive and she is total care when brought up she was on 6l of oxygen currently on 3l with shallow breathing. Patient WBC 15.2 in which I am assuming infection is from urine not to for sure that she does not have aspiration pneumonia although it is not showing up at this time will repeat Xray in the morning with the labs. Patient did not speak or open her eyes for me. We will continue IV antibiotic breathing treatments, Steroids and monitoring. Call placed to [facility] to see if family would like to consider hospice although unable to get a hold of him at this time. Review of Systems Review of Systems: Hypoxia, uti, unresponsive. All systems reviewed & are unremarkable except as noted in HPI and below PMFSH Social History Social History Smoking status: Never smoker Alcohol intake: never Substance use: never Substance use type: does not use Spiritual care concerns: No Meds Home Medications and Allergies Home Medications Medication Instructions Recorded Confirmed Type acetaminophen 325 mg tablet 650 mg PO Q6-8H PRN Pain 06/13/22 06/21/22 History albuterol sulfate 90 mcg/actuation 2 puff inhalation Q4-6H PRN 06/13/22 06/21/22 History aerosol inhaler Shortness Of Breath aspirin 81 mg tablet,delayed 81 mg PO DAILY 06/13/22 06/21/22 History release cholecalciferol (vitamin D3) 125 125 mcg PO DAILY 06/13/22 06/21/22 History mcg (5,000 unit) tablet duloxetine 60 mg capsule,delayed 60 mg PO DAILY 06/13/22 06/21/22 History release fentanyl 25 mcg/hr transdermal 1 patch transdermal Q3D 06/13/22 06/21/22 History patch hydrocodone 5 mg-acetaminophen 325 1 tablet PO Q6-8H PRN Pain 06/13/22 06/21/22 History mg tablet lorazepam 0.5 mg tablet 0.5 mg PO BID 06/13/22 06/21/22 History multivitamin,tx-minerals 1 tablet PO DAILY 06/13/22 06/21/22 History simvastatin 20 mg tablet 20 mg PO DAILY 06/13/22 06/21/22 History trihexyphenidyl 2 mg tablet 2 mg PO TID 06/13/22 06/21/22 History Allergies Allergy/AdvReac Type Severity Reaction Status Date / Time chocolate flavor Allergy Unknown Verified 06/21/22 10:14 Vital Signs Vital Signs - 24 hr 06/21/22 09:50 06/21/22 10:15 06/21/22 09:50 Temperature 97.0 F L 97.0 F L Pulse Rate 130 H 114 H 128 H Respiratory Rate 36 H 20 40 H Blood Pressure 160/113 H 157/80 H 160/113 H Pulse Oximetry 84 L 91 84 L Oxygen Delivery Nasal Cannula Nasal Cannula Nasal Cannula Oxygen Flow Rate 6 6 6 06/21/22 09:55 06/21/22 10:00 06/21/22 10:40 Temperature Pulse Rate 132 H Respiratory Rate Blood Pressure Pulse Oximetry 91 91 Oxygen Delivery Non-Rebreather Mask Nasal Cannula Oxygen Flow Rate 15 6 06/21/22 10:50 06/21/22 10:10 06/21/22 10:20 Temperature Pulse Rate 118 H 128 H 124 H Respiratory Rate 24 H 24 H Blood Pressure Pulse Oximetry Oxygen Delivery Oxygen Flow Rate 06/21/22 10:55 06/21/22 11:05 06/21/22 11:31 Temperature Pulse Rate 100 101 H Respiratory Rate 22 H 20 Blood Pressure Pulse Oximetry 95 Oxygen Delivery Nasal Cannula Oxygen Flow Rate 6 06/21/22 12:22 06/21/22 12:33 06/21/22 10:05 Temperature Pulse Rate 105 H 109 H 130 H Respiratory Rate 20 20 Blood Pressure Pulse Oximetry 100 Oxygen Delivery Oxygen
[2022-06-22] MEDS: LORazepam INJ (*CRX) 2 MG/ML VIAL 1 MG IV PUSH ×2 (15:33→20:11)
--- NOTE | 2022-06-22 22:16 | PC.NURSE ---
Pt incontinent of stool and urine. This RN w/assist from Nuria Dubon RN. changed the pt's depend and cleansed her samaria-anal area w/hygiene wipes. A clean, dry depend placed on the pt, and disposable bed pad changed. Call light w/in reach; side railsx3; located near nurses station; bed alarm on; and bed in lowest position for pt safety.
[2022-06-23] VITALS (16 sets, daily range): BP systolic 144–177; BP diastolic 60–96; PULSE 70–109; RESP 10–22; TEMP 36.2–36.3; O2SAT 92–98
[2022-06-23] MEDS: LORazepam INJ (*CRX) 2 MG/ML VIAL 1 MG IV PUSH ×3 (00:51→19:01)
[2022-06-23] MEDS: methylPREDNISolone SOD SUCC 40 MG VIAL IV PUSH ×2 (04:12→20:45)
[2022-06-23] MEDS: IPRATROPIUM 0.5 MG/ALBUTEROL SULFATE 2.5 MG AMPUL.NEB 3 ML INHALATION ×4 (05:08→23:27)
[2022-06-23 05:13] LABS: Base Excess ABG 2.4 mmol/L (0-2); HCO3 ABG 26.6 mmol/L (23-29); Hematocrit 39.5 % (35.0-42.0); Hemoglobin 12.1 g/dL (11.7-13.8); Mean Corpuscular HGB Conc 30.6 g/dL (32.0-36.0); Mean Corpuscular Hemoglobin 30.4 pg (27.0-31.0); Mean Corpuscular Volume 99.2 fL (78.0-102.0); Oxygen Content ABG 18.2 %vol (16.0-22.0); Oxygen Saturation ABG 97.5 % (95-97); Oxyhemoglobin 96.2 % (94-100); PCO2 ABG 39.6 mmHg (35-45); PO2 ABG 104.6 mmHg (75-85); Platelet Count Result 318 K/mm3 (150-420); Red Blood Count 3.98 M/mm3 (4.20-5.40); Red Cell Distribution Width 12.3 % (11.6-14.4); Total Hemoglobin 13.4 g/dL (12.0-18.0); White Blood Count 14.8 K/mm3 (4.8-10.8); pH ABG 7.45 (7.35-7.45)
[2022-06-23 05:15] LABS: Device NASAL CANNULA; Modified Allen's Test Pass; Site Drawn RIGHT RADIAL
[2022-06-23 05:23] LABS: Anion Gap 5 mmol/L (8-16); Blood Urea Nitrogen 33 mg/dL (7-18); Calcium 9.2 mg/dL (8.5-10.1); Carbon Dioxide 31 mmol/L (21-32); Chloride 112 mmol/L (98-108); Estimated CRCL calculation 46 ml/min; Estimated Glomerular Filt Rate > 60; Glucose 149 mg/dL (70-99); Osmolality Calculated 316 mOsm/kg (285-295); Sodium 148 mmol/L (136-145)
[2022-06-23] MEDS: ONDANSETRON INJ 4 MG/2 ML VIAL IV PUSH (07:38)
--- NOTE | 2022-06-23 09:06 | WPDPN ---
Progress Note: A&P Assessment and Plan (1) Acute exacerbation of chronic obstructive airways disease: Code(s): J44.1 - Chronic obstructive pulmonary disease with (acute) exacerbation Status: Acute Assessment and Plan: breathing treated IV Steroids Oxygen (2) Urinary tract infection in female: Code(s): N39.0 - Urinary tract infection, site not specified Status: Acute Assessment and Plan: IV antibiotics IVF monitor intake and output urine cultre pending Blood cultures pending. (3) DNR no code (do not resuscitate): Code(s): Z66 - Do not resuscitate Status: Acute (4) Comfort measures only status: Code(s): Z51.5 - Encounter for palliative care Status: Acute Assessment and Plan: awaiting return call from son as if he wants hospice or not. (5) Acute respiratory distress: Code(s): R06.03 - Acute respiratory distress Status: Acute Assessment and Plan: breathing treatments steroids oxygen as needed. Subjective Date/time seen: 06/23/22 09:06 Interval history: Patient still unable to follow commands, unsure if this is her baseline. Patient occasional purposeless moaning, she does not appear to be in pain. I will discuss hospice with family member. Review of Systems Review of Systems: ROS unobtainable: Yes unobtainable due to medical condition Exam Narrative: GENERAL:Illappearing, Pale with no acute distress. HEAD:Normocephalic, atraumatic. EYES: PERRLA ENT: Nares clear, no rhinorrhea or epistaxis. Mucous membranes moist. CHEST: Clear to diminished auscultation. shallow breathing mild respiratory distress. HEART: Regular rate and rhythm Normal peripheral pulses. ABDOMEN: Soft, nontender, nondistended, normal active bowel sounds. EXTREMITIES: Normal range of motion. No edema. SKIN: Warm, dry, no rash. NEURO: No no responsive and not verbalizing Objective Data Vital Signs Vital Signs: Vital Signs - 24 hr 06/22/22 12:26 06/22/22 12:38 06/22/22 12:00 Temperature Pulse Rate 86 89 85 Respiratory Rate 20 20 18 Blood Pressure Pulse Oximetry 96 100 97 Oxygen Delivery Nasal Cannula Oxygen Flow Rate 3 3 3 06/22/22 16:45 06/22/22 18:17 06/22/22 18:26 Temperature 97.2 F L Pulse Rate 84 71 74 Respiratory Rate 18 16 16 Blood Pressure 122/60 Pulse Oximetry 97 91 Oxygen Delivery Nasal Cannula Oxygen Flow Rate 3 3 06/22/22 20:00 06/22/22 23:28 06/22/22 23:25 Temperature 97.6 F 97.4 F L Pulse Rate 93 96 106 H Respiratory Rate 12 16 12 Blood Pressure 113/75 150/76 H Pulse Oximetry 93 96 96 Oxygen Delivery Nasal Cannula Nasal Cannula Oxygen Flow Rate 3 3 3 06/22/22 23:37 06/23/22 04:00 06/23/22 04:15 Temperature 97.4 F L Pulse Rate 100 92 Respiratory Rate 16 13 Blood Pressure 148/64 H Pulse Oximetry 98 98 Oxygen Delivery Nasal Cannula Nasal Cannula Oxygen Flow Rate 2 2 06/23/22 04:49 06/23/22 05:09 06/23/22 05:19 Temperature Pulse Rate 70 72 Respiratory Rate 16 16 Blood Pressure Pulse Oximetry 96 92 Oxygen Delivery Nasal Cannula Oxygen Flow Rate 1 1 Intake/Output Intake/Output: Intake & Output 06/20/22 06/21/22 06/22/22 06/23/22 23:59 23:59 23:59 23:59 Intake Total 1150 200 30 Balance 1150 200 30 Meds/Results Medications: Active Medications Generic Name Dose Route Start Last Admin Trade Name Freq PRN Reason Stop Dose Admin Acetaminophen 650 mg 06/21/22 13:12 Acetaminophen 325 Mg Tablet PO Q4H PRN Mild Pain (1-3) or Fever Albuterol/Ipratropium 3 ml 06/21/22 18:30 06/23/22 05:08 Ipratropium 0.5 Mg/Albuterol Sulfate 2.5 Mg Ampul.Neb 3 Ml INHALATION 3 ml Q6HRT [facility] Administration Aspirin 81 mg 06/22/22 09:00 06/23/22 09:01 Aspirin 81 Mg Enteric Tablet PO Not Given DAILY LUIS Duloxetine HCl 60 mg 06/22/22 09:00 06/23/22 09:01 Duloxetine Hcl 30 Mg Capsule.Dr PO Not Given QAM LUIS
[2022-06-23] MEDS: MORPHINE SULFATE (*CRX) 2 MG/ML INJ IV PUSH ×3 (11:06→20:46)
[2022-06-23] MEDS: methylPREDNISolone SOD SUCC 40 MG VIAL (13:06)
[2022-06-24] MEDS: methylPREDNISolone SOD SUCC 40 MG VIAL IV PUSH ×2 (05:03→13:42)
[2022-06-24 05:07] VITALS: PULSE 84; RESP 16; O2SAT 93
[2022-06-24] MEDS: IPRATROPIUM 0.5 MG/ALBUTEROL SULFATE 2.5 MG AMPUL.NEB 3 ML INHALATION ×2 (05:07→13:13)
[2022-06-24 05:16] VITALS: PULSE 81; RESP 20
[2022-06-24 08:00] VITALS: BP 173/68; PULSE 114; RESP 24; TEMP 36.9; O2SAT 90
[2022-06-24] MEDS: MORPHINE SULFATE (*CRX) 2 MG/ML INJ IV PUSH ×2 (08:42→13:34)
[2022-06-24 08:57] LABS: Hematocrit 47.8 % (35.0-42.0); Hemoglobin 15.1 g/dL (11.7-13.8); Mean Corpuscular HGB Conc 31.6 g/dL (32.0-36.0); Mean Corpuscular Hemoglobin 31.3 pg (27.0-31.0); Mean Platelet Volume 10.2 fl (9.2-11.8); Platelet Count Result 378 K/mm3 (150-420); Red Blood Count 4.83 M/mm3 (4.20-5.40); Red Cell Distribution Width 12.6 % (11.6-14.4); White Blood Count 12.9 K/mm3 (4.8-10.8)
[2022-06-24 09:06] LABS: Anion Gap 9 mmol/L (8-16); Blood Urea Nitrogen 35 mg/dL (7-18); Calcium 9.2 mg/dL (8.5-10.1); Carbon Dioxide 34 mmol/L (21-32); Chloride 112 mmol/L (98-108); Estimated CRCL calculation 41 ml/min; Estimated Glomerular Filt Rate > 60; Glucose 196 mg/dL (70-99); Osmolality Calculated 333 mOsm/kg (285-295); Potassium 3.5 mmol/L (3.5-5.1); Sodium 155 mmol/L (136-145)
--- NOTE | 2022-06-24 09:09 | PC.NURSE ---
AM PO medication held due to declining condition and patient's inability to swallow. Patient will be evaluated by hospice today. Morphine administered due to grimacing during care. Patient repositioned to R side with heals off bed. Oral care provided.
--- NOTE | 2022-06-24 11:34 | PM.DS ---
DS: Admitting Diagnosis Discharge Date 06/24/2022 Admitting Diagnosis Hypoxia, urinary Tract infection DS: Discharge Diagnosis Discharge Diagnosis (1) Acute exacerbation of chronic obstructive airways disease: Code(s): J44.1 - Chronic obstructive pulmonary disease with (acute) exacerbation Status: Acute Assessment and Plan: breathing treated IV Steroids Oxygen patient will transition to hospice (2) Urinary tract infection in female: Code(s): N39.0 - Urinary tract infection, site not specified Status: Acute Assessment and Plan: IV antibiotics IVF monitor intake and output urine cultre pending Blood cultures pending. patient will transition to hospice (3) DNR no code (do not resuscitate): Code(s): Z66 - Do not resuscitate Status: Acute (4) Comfort measures only status: Code(s): Z51.5 - Encounter for palliative care Status: Acute Assessment and Plan: awaiting return call from son as if he wants hospice or not. patient will transition to hospice (5) Acute respiratory distress: Code(s): R06.03 - Acute respiratory distress Status: Acute Assessment and Plan: breathing treatments steroids oxygen as needed. patient will transition to hospice DS: Summary Hospital Course Reason for hospitalization: Hypoxia, urinary Tract infection, altered mental status Hospital Course: This is a 87 year old female that [facility] hypoxia, UTI, Hypertensice, Tachycardic. Patient PMH is from previous chart ?of dementia, parkinson's, polyneuropathy, MALLY, osteoporosis, and neoplasm of upper airway. Patient was found to have saturation in the 60% on arrival and she is a comfort measure so BIPAP was not a option. Patient was started on IVF with IV antibiotics and given IV magnesium with blood pressure medication. patient condition did not improve patient deteriorated patient was unresponsive whole hospital stay. Spoke with son he has agreed to hospice. [facility] and transition to hospice. Time Spent with Patient Time attestation: Total time spent providing and/or coordinating discharge services: Exam Narrative: GENERAL:Illappearing, Pale with no acute distress. HEAD:Normocephalic, atraumatic. EYES: PERRLA ENT: Nares clear, no rhinorrhea or epistaxis. Mucous membranes moist. CHEST: Clear to diminished auscultation. shallow breathing mild respiratory distress. HEART: Regular rate and rhythm Normal peripheral pulses. ABDOMEN: Soft, nontender, nondistended, normal active bowel sounds. EXTREMITIES: Normal range of motion. No edema. SKIN: Warm, dry, no rash. NEURO: No no responsive and not verbalizing DS: Data Data Completed and Pending Labs on day of discharge: Labs from last 24 hours 06/24/22 06/24/22 08:52 08:52 WBC 12.9 H RBC 4.83 Hgb 15.1 H Hct 47.8 H MCV 99.0 MCH 31.3 H MCHC 31.6 L RDW 12.6 Plt Count 378 MPV 10.2 Sodium 155 H Potassium 3.5 Chloride 112 H Carbon Dioxide 34 H Anion Gap 9 BUN 35 H Creatinine 0.64 Estim Creat Clear Calc 41 Estimated GFR > 60 Glucose 196 H Calculated Osmolality 333 H Calcium 9.2 Preliminary micro results at discharge 06/21/22 10:38 Blood Culture - Preliminary Blood 06/21/22 10:38 Blood Culture - Preliminary Blood Discharge Plan Discharge Attending physician on discharge: Donavan Samuel Consulting providers: Natalia Al ; Vega Erwin ; Manuel Avila ; Omar Sharma Discharging Clinician: Vega Erwin Anticipated Discharge Date/Time: 06/24/22 11:19 Patient Disposition: NH [facility] Activity: as tolerated Diet: as tolerated Discharge Instructions: Recommend hospice care. Patient is comfort care keep comfortable. Make NPO if unbale to swallow Patient Instructions: Antibiotic Form, Amoxicilli
[2022-06-24 13:13] VITALS: PULSE 104; RESP 20; O2SAT 91
[2022-06-24 13:25] VITALS: PULSE 104; RESP 22; O2SAT 93
[2022-06-24] MEDS: fentaNYL (*CRX) 25 MCG PATCH TRANSDERM (15:18)
--- NOTE | 2022-06-24 15:35 | PC.NURSE ---
Patient discharged to [facility]. Report called to Fiordaliza at [facility]. Fiordaliza voiced understanding of discharge instructions. Written prescriptions for narcotics sent in discharge packet. Personal belongings sent home with patient. [facility] transported patient via stretcher. Patient left unit accompanied by [facility] staff.
--- NOTE | 2022-06-29 11:47 | PC.NURSE ---
assisted states they received and understood the discharge instructions.
== END 2022-06-24 15:35 | DRG 191 ==
LOC: CHSED 12:30 → CHS2ND 13:37
PROVIDERS: Nurse Practitioner; Nurse Practitioner Family; Admitting Provider Internal Medicine; Emergency Provider Emergency Medicine; PCP Internal Medicine; Visit Provider Internal Medicine
DX: J44.1 Chronic obstructive pulmonary disease with (acute) exacerbation (principal); N39.0 Urinary tract infection, site not specified; R06.03 Acute respiratory distress; R13.12 Dysphagia, oropharyngeal phase; E78.5 Hyperlipidemia, unspecified; M81.0 Age-related osteoporosis without current pathological fracture; G20 Parkinson's disease; F41.9 Anxiety disorder, unspecified; F03.90 Unspecified dementia, unspecified severity, without behavioral disturbance, psychotic disturbance, mood disturbance, and anxiety; Z20.822 Contact with and (suspected) exposure to COVID-19; Z66 Do not resuscitate; I10 Essential (primary) hypertension; R09.02 Hypoxemia; G62.9 Polyneuropathy, unspecified; F41.1 Generalized anxiety disorder; Z51.5 Encounter for palliative care
CPT/HCPCS: 36415; 36600; 71045; 80048; 80053; 81001; 82805; 83605; 83735; 83880; 84484; 85025; 85027; 85652; 86140; 87040; 87086; 87637; 93005; 94640; 96365; 96367; 96375; 96376; 99285; A9270; J2060; J2270; J2405; J2543; J2920; J2930; J3475; J7030